=== PATIENT | male | born 1945 | race Caucasian/White ===

== ENCOUNTER 2017-05-17 02:32 | Inpatient (IN) | payer OTHER ==
[~2017-05-17] VITALS: Ht 154.9 cm; Wt 72.6 kg
[~2017-05-17 02:32] MED LIST: AMLODIPINE BESYL5 M1 PO; GLUCOSAMINE &1 EAC1 PO; MULTIVITAMINS1 EAC9 PO; PRAVACHOL80 M1 PO; PROTONIX40 M3 PO; TRIAMTERENE-HC1 EAC3 PO
--- NOTE | 2017-05-17 15:59 | Operative Report ---
Operative/Inv Procedure Report Surgery Date: 05/17/17 Name of Procedure: 1. Laparoscopic low anterior resection 2. Rigid sigmoidoscopy for the evaluation of anastomotic integrity 3. Biopsy of anterior pelvic wall Pre-Operative Diagnosis: Adenocarcinoma of rectosigmoid Post-Operative Diagnosis: Adenocarcinoma of rectosigmoid Estimated Blood Loss: less than 50ml Surgeon/Stock Drier Tender: Jeronimo Lopez Jr., DO Anesthesia: general endotracheal tube, block Monitors: Per routine Implants: None Urine Output: 150 mL Drains: None Specimens: 1. Biopsy of anterior pelvic wall for frozen section-negative for cancer 2. Rectosigmoid colon 3. Distal stapler donut as most distal margin Complications: None Condition: Good Operative Indication: This is a 71-year-old who after developing intestinal obstructive symptoms had a colonoscopy. He was found to have a mass at the rectosigmoid. The scope could not traverse the mass because of high-grade partial obstruction of the bowel. Biopsies were performed and confirmed the presence of adenocarcinoma. Staging workup failed to reveal evidence of metastasis. Operative/Procedure Note Note: The day before the operation the patient did a bowel prep at home including oral laxatives and oral antibiotics. He presented to [facility] and received Entereg in the holding area. He was taken into the operating room where he received IV antibiotics and subcutaneous heparin. He was placed on the operating room table underwent induction of general anesthesia and placement of both endotracheal tube and Welch catheter. At this point the anesthesia team did bilateral tap blocks. Next the patient was converted to lithotomy position in Wander stirru and the abdomen and perineum were prepped and draped in usual fashion. We gained access to the abdominal cavity using a Arevalo technique. A 12 mm Arevalo port was placed in the supraumbilical position. The abdomen is insufflated to 15 mmHg. Next a right lower quadrant 12 mm aerocele port was placed under direct visualization of the laparoscope. After this a 5 mm suprapubic and 5 mm right upper quadrant port were also placed under direct visualization of the laparoscope. Laparoscopic exploration of the abdominal cavity was then carried out. The liver appeared normal without evidence of metastasis. Patient had a very redundant sigmoid colon very abnormal adhesions between the mid sigmoid colon in the lateral sidewall. The area of the tumor was visible. There was puckering in the anterior surface of the rectum and the rectum was abnormally adherent to the bladder. I was concerned that this could represent direct tumor invasion into the bladder. At this point I took down the abnormal attachments between the sigmoid colon and lateral sidewall. I then began to take down the white line of Toldt's on the left side of the colon at the level of the rectosigmoid. I identified the gonadal blood vessels as well as the left ureter and the iliac vessels and mobilize the colon mesentery away from the structures. Next the colon was grasped at the rectosigmoid. I incised the peritoneum at the level of the sacral promontory on the right side of the rectosigmoid. I entered the avascular posterior space of the rectum. I carried out a medial to lateral dissection until I could see once again the ureter and an port and blood vessels on the left side. At this point I skeletonized the inferior mesenteric artery at a point distal to the takeoff of the most proximal sigmoid branch. After skeletonized the vessels as they were ligated and divided with the LigaSure device. I inspected the vascular stumps which were completely hemostatic. Next I continued to follow the avascular posterior rectal space down to the lower part of the rectum. I came around to the right first and divided the lateral stalks with the LigaSure device. I came around the left and divided the lateral stalks once again with the LigaSure device. At this point I started to mobilize the area of the tumor the anterior pelvic wall. This was done partly with electrocautery, partly with LigaSure device partly with blunt dissection. After completely freeing the specimen from the pelvic wall. A biopsy of the pelvic wall was performed with the biopsy forceps. This was sent for frozen section. There was no evidence of tumor on frozen section just inflammatory tissue. I oversewed this biopsy site with a 2-0V lock Vicryl suture. Next I chose my distal site of transection on the bowel. This was about the level of the mid rectum. The mesentery was divided partly with electrocautery and partly with the LigaSure device until the rectal wall was exposed circumferentially. A laparoscopic ESA stapler was used to divide the bowel. I first used a 60 mm pupil load, but needed an additional 45 mm blue load to complete the transection. At this point the transected end of the bowel was grasped with a locking grasper and the pneumoperitoneum was let down. The suprapubic 5 mm port was extended to 5 cm to create extraction port. This was a Pfannenstiel type incision. Once we entered the abdominal cavity a wound protector was placed through the incision, and the surgical field was walled off with sterile towels. I was able to easily extract specimen through this incision. I chose my proximal site of transection and cleared the fascia partly with electrocautery and partly with the LigaSure device. A Art clamp was laced across the bowel and the bowel was divided proximal to the clamp. The specimen was taken off the table and sent for routine path. A handsewn pursestring was performed with 2-0 Prolene suture on the open end of the sigmoid colon. A 28 EEA stapler was chosen for the anastomosis. The anvil of the stapler was placed into the lumen of the bowel and the purse string was tied snugly around the PEG of the anvil. The bowel was reduced back into the abdominal cavity. The abdominal wall at the Pfannenstiel incision was then closed in 2 layers. Peritoneum was closed with a running 2-0 Vicryl suture. The fascia was closed with 0 Vicryl suture. The abdomen was reinsufflated. We irrigated out any residual fluid and blood from the pelvis. First the sizers then the 28 stapler was passed transanally. The spike of the stapler was then advanced through the wall of the rectum. The 2 ends of the stapler were laparoscopically mated. We inspected the bowel to make sure the mesentery and bowel was not twisted. The stapler was then completely closed and allowed to settle for 30 seconds. The stapler was armed fired opened and retrieved. We had 2 complete donuts on the stapling device. Next the pelvis was filled with sterile saline the bowel was occluded at the level sacral promontory and a rigid sigmoidoscopy was performed. The anastomosis appeared sound without bleeding and there was no air bubbles leaking from the anastomosis. At this point we prepared to conclude the operation. The fluid was aspirated out of the pelvis. Ports removed under direct visualization of the laparoscope. The subcutaneous tissue at the Pfannenstiel site was copiously irrigated and then the skin was closed with skin td. The umbilical port was closed with a [id number] 0 Vicryl. The fascia of right lower quadrant internal millimeter port was closed with a simple 0 Vicryl. All the skin incisions were closed with subcuticular 4-0 Monocryl. The abdomen was cleansed and dried. Dermabond skin glue was used to close the dermis of all the small incisions. A dry sterile island dressing was placed over the Pfannenstiel incision. The patient tolerated the procedure well. He was extubated in the operating room and taken the recovery area in good condition. At the end of this operational needle sponges and Schmidts were accounted for. Findings: Tumor at level of rectosigmoid and upper rectum Discharge Disposition: PACU
--- NOTE | 2017-05-17 17:20 | Surgical Discharge Summary ---
Visit Information Visit Dates Admission Date: 05/17/17 Discharge Date: 05/20/17 History of Present Illness Chief Complaint: Adenocarcinoma of rectosigmoid Medical History Isolation History: Standard Surgical History Pertinent Surgical History: colon resection Review of Systems: see h&p Hospital Course Course Attending Physician: Jeronimo Lopez Jr., DO Primary Care Physician: Kandi Nation MD Hospital Course: Electively scheduled laparoscopic low anterior resection, rigid sigmoidoscopy for the evaluation of anastomotic integrity, and biopsy of anterior pelvic wall by on 05/17/17 for history of adenocarcinoma of rectosigmoid. Entereg continued post-operatively, to limit narcotic slowing of the small intestine. Started on clears post-op, with advancement as tolerated with return of bowel function. A kaur catheter was left in place intentionally post-op to monitor urine output strictly, which was removed post-op day#1. Pain control was transitioned from iv to oral medication as able. Post-operative labs were checked and followed. Complications: None Allergies: Coded Allergies: No Known Allergies (05/12/17) Significant Procedures: LAP ASSIST LAR Disposition Summary Disposition Principal Diagnosis: Adenocarcinoma of rectosigmoid Additional Diagnosis: same as above, s/p Surgery Date: 05/17/17 Name of Procedure: 1. Laparoscopic low anterior resection 2. Rigid sigmoidoscopy for the evaluation of anastomotic integrity 3. Biopsy of anterior pelvic wall Discharge Disposition: home or self care Discharge Instructions General Discharge Information Code Status: Full Code Patient's Diet: low residue diet as tolerated Patient's Activity: no heavy lifting >10 lbs. no strenuous activity. Follow-Up Instructions/Appts: follow up with 7-10 days after discharge staple removal around post-op day#12-14 Medications at Discharge Discharge Medications: Continue taking these medications: Triamterene/Hydrochlorothiazid (Triamterene-Hctz 37.5-25 MG Cp) 37.5 MG-25 MG CAPSULE 1 Capsule ORAL DAILY Pravastatin Sodium (Pravachol) 80 MG TABLET 1 Tablet ORAL DAILY Amlodipine Besylate (Amlodipine Besylate) 5 MG TABLET 1 Tablet ORAL DAILY Pantoprazole Sodium (Protonix) 40 MG TABLET. 1 Tablet ORAL DAILY Multiple Vitamin (Multivitamins) 1 EACH TABLET 1 Tablet ORAL DAILY Gluc 2KCL/Chondr/Waylon Hy/Hy AC (Glucosamine & Chondroitin Cap) (Unknown Strength ) CAPSULE Unknown Dose ORAL DAILY Copies To: Chapis NUNN,Kandi Hall
--- NOTE | 2017-05-17 17:23 | Patient Discharge Instructions ---
Discharge Instructions General Discharge Information You were seen/treated for: Adenocarcinoma of rectosigmoid You had these procedures: Surgery Date: 05/17/17 Name of Procedure: 1. Laparoscopic low anterior resection 2. Rigid sigmoidoscopy for the evaluation of anastomotic integrity 3. Biopsy of anterior pelvic wall Watch for these problems: fever>101.3, increased pain, redness/swelling/drainage, dizziness, shortness of breath, chest pains Call Surgeon to remove: [place] No bath, but you may shower: Yes Other wound care: keep incisions clean & dry. ok to shower. no bathing Diet Continue normal diet: Yes Recommended Diet: Low Residue Activity Full Activity/No Limits: No Activity Self Limited: Yes Pounds, do NOT lift more than: 10 Other activity limits: no heavy lifting. no strenuous activity. Acute Coronary Syndrome Inclusion Criteria At DC or during hospital stay patient has or had the following: ACS DIAGNOSIS No Discharge Core Measures Meds if any: Prescribed or Continued at Discharge Meds if any: NOT Prescribed or Continued at Discharge Congestive Heart Failure Inclusion Criteria At DC or during hospital stay patient has or had the following: CHF DIAGNOSIS No Discharge Core Measures Meds if any: Prescribed or Continued at Discharge Meds if any: NOT Prescribed or Continued at Discharge Cerebrovascular accident Inclusion Criteria At DC or during hospital stay patient has or had the following: CVA/TIA Diagnosis No Discharge Core Measures Meds if any: Prescribed or Continued at Discharge Meds if any: NOT Prescribed or Continued at Discharge Venous thromboembolism Inclusion Criteria VTE Diagnosis No VTE Type NONE VTE Confirmed by (Test) NONE Discharge Core Measures - Per Current guidelines, there needs to be overlap - treatment for the first 5 days of Warfarin therapy. - If discharged on Warfarin prior to 5 days of - overlap therapy, the patient will need to be - assessed for post discharge needs including - *Post discharge parental anticoagulation - *Warfarin and/or parental anticoagulation education - *Follow up date to check INR post discharge At least 5 days overlap therapy as Inpatient No Meds if any: Prescribed or Continued at Discharge Note: Overlap Therapy is Warfarin and Anticoagulant Meds if any: NOT Prescribed or Continued at Discharge
[2017-05-17] MEDS ORDERED: COLACE100 M1 PO (17:24)
[2017-05-17] MEDS ORDERED: PERCOCET 5-3251 EACH PO (17:24)
[2017-05-17 17:31] VITALS: BP 150/78
--- NOTE | 2017-05-17 21:45 | PN- General Surgery ---
Subjective Subjective: POSTOP CHECK pain well controlled, no n/v, no copier operator/sob, no oob, kenyon clrs, no flatus/bm Objective Vital Signs and I&Os Vital Signs Date Time Temp Pulse Resp B/P B/P Pulse O2 O2 Flow FiO2 Mean Ox Delivery Rate 05/17 2158 97.9 76 20 120/64 100 Nasal 2.0L Cannula 05/17 173 96 Nasal 2.0L Cannula 05/17 1730 97.7 84 18 150/78 96 Nasal 2.0L Cannula Physical Exam: GEN: NAD CARD: [id number] RRR PULM: CTAB ABD: soft, ttp, incisions cdi, no cs EXT: calves soft nt, ALPS on bl Assessment/Plan Assessment/Plan A: 71M POD0 sp lap LAR, stable with minimal postop pain, tolerating clr liquids, awaiting return bowel fxn P: - DVT ppx - clears - prn pain meds - OOB, ambulate - am labs - entereg until bm - likely hl ivf, jose kaur in am - will dimas attending Core Measures Venous Thromboembolism VTE Risk Factors Surgery No Mechanical VTE Prophylaxis d/t N/A MechProphylax Ordered No VTE Pharm Prophylaxis d/t NA PharmProphylax ordered
[2017-05-17 21:58] VITALS: BP 120/64
[2017-05-18 07:37] VITALS: BP 136/74
[2017-05-18 08:46] LABS: ABSOLUTE BASOPHIL COUNT 0 /CUMM (0.0-0.2); ABSOLUTE EOSINOPHIL COUNT 0 /CUMM (0.0-0.7); ABSOLUTE GRANULOCYTE CT 8.9 /CUMM (1.4-6.5); ABSOLUTE LYMPH COUNT 1.1 /CUMM (1.2-3.4); ABSOLUTE MONOCYTE COUNT 1.1 /CUMM (0.10-0.60); BASOPHIL % 0 % (0.0-2.0); EOSINOPHIL % 0.1 % (0-5); GRANULOCYTE % 79.8 % (42.2-75.2); HEMATOCRIT 33.7 % (42-52); MEAN CORPUSCULAR HGB 27.2 PG (27.0-31.0); MEAN CORPUSCULAR HGB CONC 33.3 G/DL (33.0-37.0); MEAN CORPUSCULAR VOLUME 81.5 FL (80.0-94.0); MEAN PLATELET VOLUME 6.9 FL (7.4-10.4); PLATELET COUNT 345 /CUMM (130-400); RBC DISTRIBUTION WIDTH 16.4 % (11.5-14.5); RED BLOOD CELL CT 4.14 /CUMM (4.70-6.10); WHITE BLOOD CELL COUNT 11.1 /CUMM (4.8-10.8)
--- NOTE | 2017-05-18 09:26 | PN- General Surgery ---
Surgical Brief Attending Note Brief Attending Note: Pt seen and examined. He has slight incisional pain, tolerating clears, positive flatus, no BM. OOB to chair. AVSS NAD, AAO x3 Abdomen: soft, minimally distended, incisionally tender, no rebound/guarding dressings clean/dry A/P: A 71 year-old man POD #1 s/p lap LAR - Clears, advance as tolerated - OOB/Ambulate - IS - DVT prophylaxis - Keep kaur in due to extensive pelvic dissection and for strict I&O - Labs pending
[2017-05-18 14:28] VITALS: BP 130/65
[2017-05-18 22:27] VITALS: BP 126/68
[2017-05-19 06:32] VITALS: BP 134/72
--- NOTE | 2017-05-19 09:09 | PN- General Surgery ---
See Addendum Subjective Subjective: Pt in chair, very minimal pain. +BM, kaur in. ambulating. denies fever, cp/sob tolerating low res diet Objective Vital Signs and I&Os Vital Signs Date Time Temp Pulse Resp B/P B/P Pulse O2 O2 Flow FiO2 Mean Ox Delivery Rate 05/19 0532 98.5 82 20 134/72 97 Room Air 05/18 2227 98.3 83 20 126/68 95 05/18 1559 Room Air 05/18 1428 98.3 75 17 130/65 97 Room Air Intake & Output 05/19 1600 05/19 0800 05/19 0000 05/18 1600 05/18 0800 05/18 0000 Intake Total 201 228 8596 1500 1160 Output Total 1450 1600 1350 850 Balance -1270 900 -600 150 310 Intake, IV 700 900 800 Intake, Oral 180 900 300 600 360 Output, Urine 1450 1600 1350 850 Patient 160 lb Weight Weight Bed scale Measurement Method Physical Exam: gen- nad resp- decreased effort, clear cardio-rrr abd- ND, +BS, soft, nt. incisions clean and dry. td in lower abd incision , no signs of infection, dressing changed Assessment/Plan Assessment/Plan 71yo M SP LAR for rectal CA POD 2. stable low residue diet ? remove kaur today- will discuss with nasima/yeison pain mangement with PO pain meds encourage amblation encourage IS DVT ppx- sq heparin regular hoem meds Plan for DC to home likely tomorrow. Core Measures Venous Thromboembolism VTE Risk Factors Surgery No Mechanical VTE Prophylaxis d/t N/A MechProphylax Ordered No VTE Pharm Prophylaxis d/t NA PharmProphylax ordered
[2017-05-19 09:35] LABS: ABSOLUTE BASOPHIL COUNT 0 /CUMM (0.0-0.2); ABSOLUTE EOSINOPHIL COUNT 0 /CUMM (0.0-0.7); ABSOLUTE GRANULOCYTE CT 10.7 /CUMM (1.4-6.5); ABSOLUTE LYMPH COUNT 1.2 /CUMM (1.2-3.4); ABSOLUTE MONOCYTE COUNT 0.9 /CUMM (0.10-0.60); BASOPHIL % 0.3 % (0.0-2.0); EOSINOPHIL % 0.3 % (0-5); HEMATOCRIT 36.4 % (42-52); MEAN CORPUSCULAR HGB CONC 33.2 G/DL (33.0-37.0); MEAN CORPUSCULAR VOLUME 81.4 FL (80.0-94.0); MEAN PLATELET VOLUME 7.1 FL (7.4-10.4); PLATELET COUNT 413 /CUMM (130-400); RBC DISTRIBUTION WIDTH 16.5 % (11.5-14.5); RED BLOOD CELL CT 4.47 /CUMM (4.70-6.10); WHITE BLOOD CELL COUNT 12.8 /CUMM (4.8-10.8)
[2017-05-19 10:26] LABS: GRANULOCYTE % 83.2 % (42.2-75.2)
[2017-05-19 14:30] VITALS: BP 110/67
[2017-05-19 21:34] VITALS: BP 130/74
[2017-05-20 06:33] VITALS: BP 134/74
--- NOTE | 2017-05-20 07:13 | PN- General Surgery ---
See Addendum Subjective Subjective: POD## S/P LAR NO MAJOR ISSUES OVERNIGHT DENEIS CP, SOB, NO N+V WITH DIET Objective Vital Signs and I&Os Vital Signs Date Time Temp Pulse Resp B/P B/P Pulse O2 O2 Flow FiO2 Mean Ox Delivery Rate 05/20 0533 98.5 74 18 134/74 97 Room Air 05/19 2134 98.4 70 18 130/74 94 03/ 1529 Room Air Room Air 05/19 1430 98.1 84 18 110/67 98 Room Air Intake & Output 05/20 0800 05/20 0000 05/19 1600 05/19 0800 05/19 0000 05/18 1600 Intake Total 360 800 250 187 948 2742 Output Total 400 1450 1600 Balance 360 800 -150 -1270 900 -600 Intake, IV 700 Intake, Oral 360 800 250 180 900 300 Output, Urine 400 1450 1600 Physical Exam: CV: RRR LUNGS: CLEAR ABD: SOFT, +BM INCISION C/D/I EXPECTED TENDERNESS TO PALP EXT: NO CALF TENDERNESS CMS INTACT Assessment/Plan Assessment/Plan SURGICAL STABLE PLAN D/C ENTEREG OOB/AMBULATE D/C HOME LATER TODAY Core Measures Venous Thromboembolism VTE Risk Factors Surgery No Mechanical VTE Prophylaxis d/t N/A MechProphylax Ordered No VTE Pharm Prophylaxis d/t NA PharmProphylax ordered
[2017-05-20 09:05] VITALS: BP 134/74
[2017-05-20] MEDS ORDERED: OXYCODONE HCL5 M1 PO (11:36)
== END 2017-05-20 14:53 | DRG 331 ==
LOC: SDA 02:32 → ENRESERV 16:17 → ENTRNSPT 16:53 → EDTRNSPTSTS 17:01 → EDTRNSPT 17:01 → 2NA 17:10 → CMPTRNSPT 17:25 → ENPENDDIS 05-20 11:34 → 2NA 05-20 14:53
PROVIDERS: Physician Assistant Surgical
PROC: 0DBP4ZZ Excision of Rectum, Percutaneous Endoscopic Approach (ICD-10-PCS; principal; 2017-05-17)
PROC: 0WBF4ZX Excision of Abdominal Wall, Percutaneous Endoscopic Approach, Diagnostic (ICD-10-PCS; principal; 2017-05-17)
PROC: 0DBN4ZZ Excision of Sigmoid Colon, Percutaneous Endoscopic Approach (ICD-10-PCS; principal; 2017-05-17)
DX: C19 Malignant neoplasm of rectosigmoid junction (principal); B35.1 Tinea unguium; E78.5 Hyperlipidemia, unspecified; I10 Essential (primary) hypertension; M25.569 Pain in unspecified knee; N40.0 Benign prostatic hyperplasia without lower urinary tract symptoms; Z87.891 Personal history of nicotine dependence; Z85.828 Personal history of other malignant neoplasm of skin
CPT/HCPCS: 2NAP; 36415; 82436; 87086; C9290; C9399; J0131; J0690; J1644; J2405